=== PATIENT | female | born 1975 | race Caucasian/White ===

== ENCOUNTER 2017-09-07 12:43 | Emergency (ER) | payer MEDICARE, MEDICAID ==
[2017-09-07 14:47] LABS: ABS Basophils 0.2 10^3/ul (0-0.2); ABS Eosinophils 0.1 10^3/ul (0-0.6); ABS Lymphocytes 2.8 10^3/ul (1.0-4.8); ABS Monocytes 0.4 10^3/ul (0-0.8); ABS Neutrophils 3.9 10^3/ul (1.5-7.7); ABS Nucleated RBC 0 10^3/ul; Eosinophil % 1.1 % (0-6); Hematocrit 41 % (35-47); Lymphocyte % 37.9 % (25-47); Mean Corpuscular HGB Conc 34 g/dl (31-36); Mean Corpuscular Hemoglobin 30 pg (27-31); Mean Corpuscular Volume 87 fL (80-97); Mean Platelet Volume 7 um3 (7.4-10.4); Nucleated Red Blood Cells % 0.1; Platelet Count 250 10^3/ul (150-450); Red Blood Count 4.73 10^6/ul (4.0-5.4); Red Cell Distribution Width 14 % (10.5-15); White Blood Count 7.4 10^3/ul (3.5-10.8)
--- NOTE | 2017-09-07 15:01 | RAD ---
Indication: Chronic increasing abdominal pain. Comparison: April 13, 2005 Technique: Supine and upright views of the abdomen. Report: Obese body habitus limits image quality. No radiographic evidence for free air. Unremarkable bowel gas pattern. Small volume of stool in the colon without significant rectal distension. Negative for suspicious calcifications. Unremarkable soft tissue contours accounting for obese body habitus. IMPRESSION: No acute abdominal pelvic pathologic process evident.
[2017-09-07 15:02] LABS: EGFR Non-African American 115.8 (>60)
--- NOTE | 2017-09-28 19:21 | ED ---
Tracey Neves Edward, scribed for Julio Khan MD on 09/07/17 at 1326 . Abdominal Pain/Female - HPI Summary HPI Summary: 42 y/o female presents to the ED c/o severe ABD pain for weeks. The pain is described as a stabbing pain. The pain is located in the RLQ and radiates to the upper ABD. When the pt stands up the pain is aggravated. Associated sx: nausea, chills, numbness in her hands, bilateral pedal edema. Pt states the last time she passed gas was around 2 nights ago. Denies fever. PMHx bipolar disorder, PTSD. Sx 2 C-sections. Pt was seen at [facility] recently and had an ABD CT done. Pt states it showed kidney stones and multiple ABD hernias. - History of Current Complaint Chief Complaint: EDAbdPain Stated Complaint: ABD PAIN Hx Obtained From: Patient Timing: Constant Severity Currently: Severe Pain Intensity: 8 Pain Scale Used: 0-10 Numeric Location: Discrete At: RLQ Radiates: Yes Radiates to: Other - upper ABD Character: Other: - stabbing Aggravating Factor(s): Food, Movement - standing up Alleviating Factor(s): Nothing Associated Signs and Symptoms: Positive: Decreased Appetite, Nausea, Other: - numbness in hands, edema in feet Allergies/Adverse Reactions: Allergies Allergy/AdvReac Type Severity Reaction Status Date / Time No Known Allergies Allergy Verified 09/07/17 13:44 PMH/Surg Hx/FS Hx/Imm Hx Previously Healthy: No Neurological History: Denies: Hx Seizures Psychiatric History: Reports: Hx Post Traumatic Stress Disorder, Hx Bipolar Disorder - Immunization History Date of Tetanus Vaccine: UTD Date of Influenza Vaccine: 06/2017 Infectious Disease History: No Infectious Disease History: Denies: Traveled Outside the [place] in Last 30 Days - Family History Known Family History: Negative: Cardiac Disease, Hypertension, Diabetes - Social History Lives: With Family Alcohol Use: Occasionally Hx Substance Use: No Substance Use Type: Reports: None, Prescribed Hx Tobacco Use: No Smoking Status (MU): Never Smoked Tobacco Review of Systems Positive: Chills Eyes: Negative ENT: Negative Cardiovascular: Negative Respiratory: Negative Positive: Abdominal Pain, Nausea Genitourinary: Negative Positive: Edema - in feet Skin: Negative Positive: Numbness - in hands Psychological: Normal All Other Systems Reviewed And Are Negative: Yes Physical Exam - Summary Physical Exam Summary: Appearance: Well-appearing, Well-nourished Skin: Warm, Dry, No rash Eyes: Normal, PERRL, EOMI, sclera anicteric ENT: Normal Neck: Supple, nontender Respiratory: Clear to auscultation Cardiovascular: S1, S2, no murmur, no rub, no gallop Abdomen: Soft, nontender, no organomegaly Bowel sounds: Present Musculoskeletal: Normal, Strength/ROM Intact, no edema, pulses symmetrical Neurological: Normal, A&Ox3, cranial nerves II-XII WNL, follows commands, gait not tested, sensation intact to pin and light touch Psychiatric: affect normal, behavior appropriate, dressed appropriately, judgment intact Triage Information Reviewed: Yes Vital Signs On Initial Exam: Initial Vitals Temp Pulse Resp BP Pulse Ox 97.4 F 84 22 142/89 97 09/07/17 12:56 09/07/17 12:56 09/07/17 12:56 09/07/17 12:56 09/07/17 12:56 Vital Signs Reviewed: Yes - [place] Coma Scale Coma Scale Total: 15 Diagnostics - Vital Signs Vital Signs Temp Pulse Resp BP Pulse Ox 09/07/17 12:56 97.4 F 84 22 142/89 97 - Laboratory Result Diagrams: 09/07/17 14:28 09/07/17 14:28 Lab Statement: Any lab studies that have been ordered have been reviewed, and results considered in the medical decision making process. - Radiology ABD XR Xray Interpretation: No Acute Changes - No acute abdominal pelvic pathologic process evident. Radiology Interpretation Completed By: Radiologist - ED PHYSICIAN REVIEWS AND AGREES Abdominal Pain Fem Course/Dx - Course Course Of Treatment: ABD XR NEGATIVE. LABS WITHOUT SIGNIFICANT ABNORMALITIES. PT WILL BE D/C HOME. - Diagnoses Provider Diagnoses: Nonspecific abdominal pain Discharge - Discharge Plan Condition: Stable Disposition: HOME Patient Education Materials: Abdominal Pain (ED) Referrals: [facility] PHYSICIAN REFERRAL [Outside] The documentation as recorded by the Tracey olson Edward accurately reflects the service I personally performed and the decisions made by me, Julio Khan MD.
== END 2017-09-07 15:37 | disposition home or self-care (01) ==
LOC: ED 12:43
DX: R10.9 Unspecified abdominal pain (principal); R11.0 Nausea
CPT/HCPCS: 36415; 74020; 80053; 83690; 85025; 99282

== ENCOUNTER 2019-09-20 12:17 | Inpatient (IN) | payer MEDICARE, MEDICAID ==
[2019-09-20] MEDS ORDERED: Ondansetron INJ* 2 MG/ML VIAL IV PRN (14:22)
[2019-09-20] MEDS ORDERED: Morphine INJ* 2 MG/ML 1 ML SYRINGE (TWO MG - NEW SYRINGE VERSION) IV PRN (14:23)
[2019-09-20] MEDS: Acetaminophen TAB* 325 MG PO PRN (14:38)
[2019-09-20] MEDS: Enoxaparin(*) 40 MG/0.4 ML SYR SUBCUT SCH (14:38)
[2019-09-20] MEDS: NS 0.9% 1000 ML** 1,000 ML IV SCH ×2 (14:38→20:25)
[2019-09-20] MEDS: traMADol TAB* 50 MG PO PRN (14:53)
[2019-09-20] MEDS ORDERED: Vancomycin per Pharmacy* NOTE FOLLOW UP SCH (15:00)
[2019-09-20 15:02] LABS: ABS Eosinophils 0.1 10^3/ul (0-0.6); ABS Lymphocytes 0.5 10^3/ul (1.0-4.8); ABS Monocytes 0.2 10^3/ul (0-0.8); ABS Neutrophils 10.3 10^3/ul (1.5-7.7); Eosinophil % 0.8 %; Hematocrit 34 % (35-47); Hemoglobin 11.7 g/dL (12.0-16.0); Lymphocyte % 4.2 %; Mean Corpuscular HGB Conc 34 g/dL (31-36); Mean Corpuscular Hemoglobin 31 pg (27-31); Mean Corpuscular Volume 90 fL (80-97); Mean Platelet Volume 7.1 fL (7.4-10.4); Platelet Count 140 10^3/uL (150-450); Red Blood Count 3.81 10^6 /uL (3.70-4.87); Red Cell Distribution Width 14 % (10-15); White Blood Count 11.1 10^3/uL (3.5-10.8)
[2019-09-20 15:31] LABS: BUN/Creatinine Ratio 13.2 (8-20); Calcium 6.9 mg/dL (8.6-10.3); EGFR African American 113.2 (>60); EGFR Non-African American 93.6 (>60); Potassium 3.3 mmol/L (3.5-5.0)
[2019-09-20] MEDS ORDERED: Potassium Chlor TAB* 20 MEQ TAB.ER PO ONE (15:35)
[2019-09-20] MEDS ORDERED: Ibuprofen TAB* 600 MG PO ONE (16:29)
[2019-09-20] MEDS: Vancomycin(*) 1,250 MG in NS 0.9% 250 ML* 250 ML IVPB SCH (16:33)
[2019-09-20] MEDS: Pantoprazole TAB * 40 MG TAB PO SCH (17:30)
[2019-09-20] MEDS ORDERED: NS 0.9% 1000 ML** 1,000 ML IV ONE (17:54)
--- NOTE | 2019-09-20 19:19 | HP ---
HISTORY AND PHYSICAL: DATE OF ADMISSION: 09/20/19 PRIMARY CARE PROVIDER: None. REASON FOR THE ADMISSION: Cellulitis, sent from [facility]. HISTORY OF PRESENT ILLNESS: This is a 44-year-old female, who presented to the hospital from [facility] for the treatment of left leg cellulitis. About 4 days ago, the patient started to feel sick, which she describes as fever , malaise, and generalized fatigue. Shortly thereafter, she noted that she is having a left leg blistering, after which she noted severe erythema, swelling, and pain. This was also associated with subjective fevers at home. She went to the emergency room at [facility] and was found to have fever of 102.2, lactic acid of 4.1, WBC count of 11.82 and a lactic acid of 4.1. She was admitted with a diagnosis of left leg cellulitis and started on Zosyn. This morning, they noted that the infection had worsened and started her on vancomycin, and called the transfer center for transfer to [facility]. Currently, the patient is in our hospital, admitted, reports that her left leg is getting worse, associated with more pain and erythema, and more blisters. She is also feeling febrile with chills. PAST MEDICAL HISTORY: Includes PTSD, bipolar disorder, OCD, borderline personality disorder. PAST SURGICAL HISTORY: Includes ventral hernia surgery. ALLERGIES: MORPHINE. HOME MEDICATIONS: Include: 1. Clonazepam 2 mg at bedtime. 2. Escitalopram 10 mg at bedtime. 3. Oxcarbazepine 150 mg daily. 4. Trazodone 50 mg at bedtime. FAMILY HISTORY: Mother had cancer. SOCIAL HISTORY: She lives at home with her 2 kids. She does not smoke, no alcohol use. REVIEW OF SYSTEMS: She is having fever, chills, malaise. She does not have any sore throat. No changes in her vision or hearing. She does not have any chest pain. No palpitations. No paroxysmal nocturnal dyspnea. She does not have any shortness of breath. No cough. She does not have any abdominal pain. No nausea, no vomiting, no diarrhea. Extremities: See HPI. Skin: See HPI. She does not have any headaches, no changes in her mentation. She does have a history of PTSD, bipolar disorder with no acute changes. She does not have any thoughts of hurting herself or anyone else. PHYSICAL EXAMINATION GENERAL: This is an obese female, well developed, well nourished, lying in bed , in no acute distress. VITAL SIGNS: Blood pressure here is 132/88, heart rate of 118, temperature of 102.1, respiratory rate of 14, saturation of 91% on on room air. HEENT: Pupils are equal, round, and reactive. Atraumatic, normocephalic. There is no oropharyngeal erythema, no tonsillar exudate. NECK: There is no cervical lymphadenopathy. There is no thyromegaly. LUNGS: There is no lower extremity edema. Diminished breath sounds at the lung bases, with no wheezing, rales or rhonchi. HEART: There is no chest wall tenderness, regular tachycardia with no murmurs, rubs or gallops. ABDOMEN: Surgical scar at the vertical midline noted. There is normoactive bowel sounds. Abdomen is soft, nontender, nondistended. EXTREMITIES: There is no right lower extremity edema. Left lower extremity: There is a marker-line drawn, which contains erythema up to the knee area. There is marked erythema with mild swelling and tenderness present with few blisters present. There is also erythema at the left groin. NEUROLOGIC: She is awake, alert, oriented x3 with no focal deficit. DIAGNOSTIC STUDIES/LAB DATA: Labs: White blood cell count of 11.1, hemoglobin of 11.7, hematocrit of 34, platelets of 140. Absolute neutrophil count of 10.3, lactic acid of 1.6. Sodium of 132, potassium of 3.3, chloride of 101, bicarb of 22, BUN of 9, creatinine of 0.068. IMPRESSION AND PLAN: 1. Sepsis with left lower extremity cellulitis. At this point, I have started the patient on vancomycin, Zosyn. We will obtain blood cultures. Start the patient on IV fluids. I have ordered left lower extremity Doppler's to rule out DVT. Pain control has been ordered with acetaminophen as well as tramadol as needed. 2. Anemia. Hemoglobin of 11.7 with MCV of 90. This could be heme dilutional, repeat blood work will be ordered, I will also start the patient on pantoprazole for precautionary purposes. 3. Hypokalemia. Repletion has been ordered with 40 mEq of KCl. 4. Mild hyponatremia with sodium of 133. This is going to be replenished with normal saline. 5. History of borderline personality disorder, posttraumatic stress disorder, bipolar disorder, obsessive-compulsive disorder. Resume her home medication. 6. DVT prophylaxis with Lovenox 40 mg subcu. Additional management into the course as the hospital course progresses. [id number]/CPS #: [id number] MTDD
[2019-09-20] MEDS: Piperacillin/Tazobac ADVAN(*) 3.375 GM in NS 0.9% 100 ML* 100 ML IVPB SCH (20:26)
[2019-09-20] MEDS: clonazePAM TAB(*) 1 MG PO SCH (21:22)
[2019-09-20] MEDS: Calcium Carbonate TAB* 1250 MG (CALCIUM 500 MG) PO SCH (21:24)
[2019-09-20] MEDS: traZODone TAB* 50 MG TAB PO SCH (21:24)
[2019-09-20] MEDS: Escitalopram * 10 MG TAB PO SCH (21:25)
[2019-09-21] MEDS: traMADol TAB* 50 MG PO PRN (00:49)
[2019-09-21] MEDS: Acetaminophen TAB* 325 MG PO PRN ×3 (00:50→15:22)
[2019-09-21 01:47] LABS: Hematocrit 33 % (35-47); Hemoglobin 11.3 g/dL (12.0-16.0); Mean Corpuscular HGB Conc 34 g/dL (31-36); Mean Corpuscular Hemoglobin 31 pg (27-31); Mean Corpuscular Volume 90 fL (80-97); Mean Platelet Volume 7.1 fL (7.4-10.4); Platelet Count 127 10^3/uL (150-450); Red Blood Count 3.66 10^6 /uL (3.70-4.87); Red Cell Distribution Width 14 % (10-15); White Blood Count 9.3 10^3/uL (3.5-10.8)
[2019-09-21 02:04] LABS: Albumin/Globulin Ratio 1.1 (1-3); BUN/Creatinine Ratio 9.4 (8-20); Calcium 7.1 mg/dL (8.6-10.3); EGFR African American 121.4 (>60); EGFR Non-African American 100.3 (>60); Globulin 2.8 g/dL (2-4); Potassium 3.5 mmol/L (3.5-5.0); Total Bilirubin 0.5 mg/dL (0.2-1.0); Total Protein 5.8 g/dL (6.4-8.9)
[2019-09-21] MEDS: Vancomycin(*) 1,250 MG in NS 0.9% 250 ML* 250 ML IVPB SCH ×3 (02:07→17:04)
[2019-09-21] MEDS: Piperacillin/Tazobac ADVAN(*) 3.375 GM in NS 0.9% 100 ML* 100 ML IVPB SCH ×3 (04:02→20:02)
[2019-09-21 06:56] LABS: ABS Eosinophils 0.1 10^3/ul (0-0.6); ABS Lymphocytes 0.6 10^3/ul (1.0-4.8); ABS Monocytes 0.2 10^3/ul (0-0.8); ABS Neutrophils 8.2 10^3/ul (1.5-7.7); Eosinophil % 1.6 %; Hematocrit 33 % (35-47); Lymphocyte % 6.8 %; Mean Corpuscular HGB Conc 34 g/dL (31-36); Mean Corpuscular Hemoglobin 31 pg (27-31); Mean Corpuscular Volume 91 fL (80-97); Mean Platelet Volume 7.6 fL (7.4-10.4); Platelet Count 130 10^3/uL (150-450); Red Blood Count 3.58 10^6 /uL (3.70-4.87); Red Cell Distribution Width 14 % (10-15); White Blood Count 9.2 10^3/uL (3.5-10.8)
[2019-09-21 07:26] LABS: ALT 27 U/L (7-52); AST 34 U/L (13-39); Albumin/Globulin Ratio 1.1 (1-3); Alkaline Phosphatase 49 U/L (34-104); Anion Gap 8 mmol/L (2-11); BUN/Creatinine Ratio 8.1 (8-20); Blood Urea Nitrogen 5 mg/dL (6-24); C Reactive Protein 402.18 mg/L (<8.01); CO2 Carbon Dioxide 21 mmol/L (22-32); Calcium 7.2 mg/dL (8.6-10.3); Chloride 104 mmol/L (101-111); EGFR Non-African American 104.1 (>60); Globulin 2.8 g/dL (2-4); Glucose 130 mg/dL (70-100); Potassium 3.3 mmol/L (3.5-5.0); Sodium 133 mmol/L (135-145); Total Protein 5.8 g/dL (6.4-8.9)
[2019-09-21 07:31] LABS: Total Iron Binding Capacity 256 mcg/dL (250-450); Transferrin 183 mg/dL (203-362)
[2019-09-21 07:41] LABS: % Iron Saturation 8 % (15-55); Iron < 20 ug/dL (50-212)
[2019-09-21 07:53] LABS: Ferritin 476.3 ng/mL (11-307)
[2019-09-21 07:57] LABS: Folate > 20.00 ng/mL (>3.99)
[2019-09-21] MEDS: OXcarbazepine TAB(*) 300 MG PO SCH (08:05)
[2019-09-21] MEDS: Pantoprazole TAB * 40 MG TAB PO SCH (08:05)
[2019-09-21] MEDS: Calcium Carbonate TAB* 1250 MG (CALCIUM 500 MG) PO SCH (08:05)
[2019-09-21] MEDS ORDERED: Potassium Chlor TAB* 20 MEQ TAB.ER PO ONE (08:36)
[2019-09-21] MEDS ORDERED: Bumetanide IV* 0.25 MG/ML 4 ML VIAL SLOW PUSH ONE (08:42)
--- NOTE | 2019-09-21 10:39 | PN ---
Subjective Date of Service: 09/21/19 Interval History: Nurse reports that she is having difficulty feeling the Left Dorsalis pedis pulse, but she was able to hear it with the dopplers. Patient reports the erythema is imprving at the groin and inner thigh region, but the blisters are bigger at the lower leg and there is more swelling. She reports bilateral feet numbness Family History: Unchanged from Admission Social History: Unchanged from Admission Past Medical History: Unchanged from Admission Objective Active Medications: Acetaminophen (Tylenol Tab*) 650 mg PO Q6H PRN PRN Reason: PAIN - MODERATE Last Admin: 09/21/19 08:04 Dose: 650 mg Clonazepam (Klonopin Tab(*)) 2 mg PO BEDTIME [facility] Last Admin: 09/20/19 21:22 Dose: 2 mg Enoxaparin Sodium (Lovenox(*)) 40 mg SUBCUT Q24H [facility] Last Admin: 09/20/19 14:38 Dose: 40 mg Escitalopram Oxalate (Lexapro *) 10 mg PO BEDTIME [facility] Last Admin: 09/20/19 21:25 Dose: 10 mg Piperacillin Sod/Tazobactam (Sod 3.375 gm/ Sodium Chloride) 100 mls @ 25 mls/ hr IVPB Q8H [facility] Last Admin: 09/21/19 04:02 Dose: 25 mls/hr Vancomycin HCl 1,250 mg/ (Sodium Chloride) 250 mls @ 166.667 mls/hr IVPB Q8H [facility] Last Admin: 09/21/19 08:04 Dose: 166.667 mls/hr Ondansetron HCl (Zofran Inj*) 4 mg IV Q6H PRN PRN Reason: NAUSEA Last Admin: 09/20/19 15:47 Dose: 4 mg Oxcarbazepine (Trileptal Tab(*)) 150 mg PO DAILY [facility] Last Admin: 09/21/19 08:05 Dose: 150 mg Pantoprazole Sodium (Protonix Tab*) 40 mg PO DAILY [facility] Last Admin: 09/21/19 08:05 Dose: 40 mg Pharmacy Consult (Vancomycin Per Pharmacy*) 1 note FOLLOW UP .VANC PER PHARMACY [facility]; Protocol Pharmacy Profile Note (Vancomycin Trough Check) 1 note FOLLOW UP ONCE ONE Stop: 09/21/19 15:31 Tramadol HCl (Ultram*) 50 mg PO Q8H PRN PRN Reason: PAIN - SEVERE Last Admin: 09/21/19 00:49 Dose: 50 mg Trazodone HCl (Desyrel Tab*) 50 mg PO BEDTIME [facility] Last Admin: 09/20/19 21:24 Dose: 50 mg Vital Signs - 8 hr 09/21/19 09/21/19 09/21/19 02:45 03:08 03:31 Temperature 99 F Pulse Rate 98 Respiratory 20 20 20 Rate Blood Pressure 131/71 (mmHg) O2 Sat by Pulse 99 Oximetry 09/21/19 09/21/19 06:00 08:00 Temperature 98.9 F 100.5 F Pulse Rate 102 110 Respiratory 18 24 Rate Blood Pressure 124/60 120/71 (mmHg) O2 Sat by Pulse 95 94 Oximetry Oxygen Devices in Use Now: None Appearance: Obese female lying in bed, ill appearing but not in distress Eyes: PERRLA Respiratory: - - diminshed breath sounds with mild crackles. Cardiovascular: - - regular tachycardia, no murmurs. Abdominal: NL Sounds; No Tenderness; No Distention, No Hepatosplenomegaly Skin: - - 1+ edema bilateral lower extremities. Left inner thigh and groin with mild erythema, and the lower left leg there is severe erythmea with tenderness and bilsters present. DP diminshed at the Left leg. sensation to touch at bilateral feet is diminshed, but feet are warm with able to move the feet and wiggle toes. Neurological: Alert and Oriented x 3 Result Diagrams: 09/21/19 06:44 09/21/19 06:44 Assess/Plan/Problems-Billing Assessment: - Patient Problems (1) Sepsis due to cellulitis Current Visit: Yes Status: Acute Code(s): L03.90 - CELLULITIS, UNSPECIFIED; A41.9 - SEPSIS, UNSPECIFIED ORGANISM SNOMED Code(s): 23038990 Comment: Left leg cellulitis Blood cultures were done at [facility]- called them today and they reported the cultures are negative thus far continue IV vancomycin and zosyn blood cultures were drawn here as well. DVT was ruled out. received IV fluids, now having crackles at the lungs and worsening lower extremity swelling- stop the IV fluids, one dose of bumex (2) Anemia, iron deficiency Current Visit: Yes Status: Acute Code(s): D50.9 - IRON DEFICIENCY ANEMIA, UNSPECIFIED SNOMED Code(s): 16165826 Comment: Low hemoglobin. folate and B12 are WNL iron studies suggestive of iron deficiency IV iron while inpatient, and then will discharge with oral iron at this point no acute bleeding reports brown colored stool, will get stool for occult blood. (3) Hyponatremia Current Visit: Yes Status: Acute Code(s): E87.1 - HYPO-OSMOLALITY AND HYPONATREMIA SNOMED Code(s): 46964947 Comment: mild hyponatremia will monitor received IV fluids, now findings suggestive of fluid overload, IV fluids stopped and giving 1mg IV of bumex (4) Hypokalemia Current Visit: Yes Status: Acute Code(s): E87.6 - HYPOKALEMIA SNOMED Code( s): 70027500 Comment: repleted (5) Obesity Current Visit: Yes Status: Acute Code(s): E66.9 - OBESITY, UNSPECIFIED SNOMED Code(s): 487401335 Comment: BMI of 49 will check A1c
[2019-09-21] MEDS: Iron Sucrose* 200 MG in NS 0.9% 100 ML* 100 ML IVPB SCH (12:21)
[2019-09-21] MEDS: Enoxaparin(*) 40 MG/0.4 ML SYR SUBCUT SCH (15:22)
[2019-09-21] MEDS ORDERED: Vancomycin Trough Check NOTE FOLLOW UP ONE (15:30)
[2019-09-21] MEDS: Ibuprofen TAB* 400 MG PO PRN (17:15)
[2019-09-21] MEDS: clonazePAM TAB(*) 1 MG PO SCH (20:02)
[2019-09-21] MEDS: Escitalopram * 10 MG TAB PO SCH (20:03)
[2019-09-21] MEDS: traZODone TAB* 50 MG TAB PO SCH (20:03)
[2019-09-21] MEDS: Vancomycin(*) 1,000 MG in NS 0.9% 250 ML* 250 ML IV SCH (23:42)
[2019-09-22] MEDS: Piperacillin/Tazobac ADVAN(*) 3.375 GM in NS 0.9% 100 ML* 100 ML IVPB SCH ×3 (04:53→20:38)
[2019-09-22] MEDS: Vancomycin(*) 1,000 MG in NS 0.9% 250 ML* 250 ML IV SCH ×4 (04:54→23:06)
[2019-09-22 06:21] LABS: Hematocrit 27 % (35-47); Hemoglobin 9.3 g/dL (12.0-16.0); Mean Corpuscular HGB Conc 34 g/dL (31-36); Mean Corpuscular Hemoglobin 31 pg (27-31); Mean Corpuscular Volume 91 fL (80-97); Mean Platelet Volume 8.3 fL (7.4-10.4); Platelet Count 140 10^3/uL (150-450); Red Blood Count 3.02 10^6 /uL (3.70-4.87); Red Cell Distribution Width 14 % (10-15)
[2019-09-22 06:41] LABS: BUN/Creatinine Ratio 10.6 (8-20); Calcium 6.8 mg/dL (8.6-10.3); EGFR African American 173.4 (>60); EGFR Non-African American 143.3 (>60); Potassium 2.9 mmol/L (3.5-5.0)
[2019-09-22] MEDS ORDERED: Potassium Chlor TAB* 20 MEQ TAB.ER PO ONE ×2 (07:27→13:00)
[2019-09-22] MEDS: Acetaminophen TAB* 325 MG PO PRN (08:14)
[2019-09-22] MEDS: Iron Sucrose* 200 MG in NS 0.9% 100 ML* 100 ML IVPB SCH (08:14)
[2019-09-22] MEDS: Pantoprazole TAB * 40 MG TAB PO SCH (08:15)
[2019-09-22] MEDS: OXcarbazepine TAB(*) 300 MG PO SCH (08:15)
--- NOTE | 2019-09-22 11:31 | PN ---
Subjective Date of Service: 09/22/19 Interval History: No acute issues overnight Had fever yesterday. This morning seen and evaluated- reported no new issues having occasional shortness of breath, does have pain at the left leg. Family History: Unchanged from Admission Social History: Unchanged from Admission Past Medical History: Unchanged from Admission Objective Active Medications: Acetaminophen (Tylenol Tab*) 650 mg PO Q6H PRN PRN Reason: PAIN - MODERATE Last Admin: 09/22/19 08:14 Dose: 650 mg Clonazepam (Klonopin Tab(*)) 2 mg PO BEDTIME [facility] Last Admin: 09/21/19 20:02 Dose: 2 mg Enoxaparin Sodium (Lovenox(*)) 40 mg SUBCUT Q24H [facility] Last Admin: 09/21/19 15:22 Dose: 40 mg Escitalopram Oxalate (Lexapro *) 10 mg PO BEDTIME [facility] Last Admin: 09/21/19 20:03 Dose: 10 mg Piperacillin Sod/Tazobactam (Sod 3.375 gm/ Sodium Chloride) 100 mls @ 25 mls/ hr IVPB Q8H [facility] Last Admin: 09/22/19 04:53 Dose: 25 mls/hr Iron Sucrose 200 mg/ Sodium (Chloride) 110 mls @ 110 mls/hr IVPB DAILY [facility] Stop: 09/25/19 09:59 Last Admin: 09/22/19 08:14 Dose: 110 mls/hr Vancomycin HCl 1,000 mg/ (Sodium Chloride) 250 mls @ 166.667 mls/hr IV Q6H [facility] Last Admin: 09/22/19 10:58 Dose: 166.667 mls/hr Ibuprofen (Motrin Tab*) 400 mg PO Q6H PRN PRN Reason: MILD PAIN or TEMP > 100.4 Last Admin: 09/21/19 17:15 Dose: 400 mg Ondansetron HCl (Zofran Inj*) 4 mg IV Q6H PRN PRN Reason: NAUSEA Last Admin: 09/20/19 15:47 Dose: 4 mg Oxcarbazepine (Trileptal Tab(*)) 150 mg PO DAILY [facility] Last Admin: 09/22/19 08:15 Dose: 150 mg Pantoprazole Sodium (Protonix Tab*) 40 mg PO DAILY [facility] Last Admin: 09/22/19 08:15 Dose: 40 mg Pharmacy Consult (Vancomycin Per Pharmacy*) 1 note FOLLOW UP .VANC PER PHARMACY [facility]; Protocol Pharmacy Consult (Vancomycin Random Level*) 1 note FOLLOW UP ONCE ONE Stop: 09/23/19 05:01 Potassium Chloride (Klor Con Er Tab*) 40 meq PO UC ONCE ONE Stop: 09/22/19 13:01 Tramadol HCl (Ultram*) 50 mg PO Q8H PRN PRN Reason: PAIN - SEVERE Last Admin: 09/21/19 00:49 Dose: 50 mg Trazodone HCl (Desyrel Tab*) 50 mg PO BEDTIME [facility] Last Admin: 09/21/19 20:03 Dose: 50 mg Vital Signs - 8 hr 09/22/19 09/22/19 09/22/19 07:00 08:00 11:00 Temperature 98.7 F 98.5 F Pulse Rate 103 95 Respiratory 18 18 20 Rate Blood Pressure 127/77 126/86 (mmHg) O2 Sat by Pulse 94 95 Oximetry Oxygen Devices in Use Now: None Appearance: Obese female lying in bed, not in distress. Ears/Nose/Mouth/Throat: Mucous Membranes Moist Respiratory: Symmetrical Chest Expansion and Respiratory Effort, - - mild bibasilar wheezing. Cardiovascular: NL Sounds; No Murmurs; No JVD, RRR Extremities: - - 1+ edema bilateral lower extremities. Skin: - - Left groin with mild erythema, moderate erythema and Left lower leg with blisters, swelling and tenderness. Dorsalis pedis 2+ Neurological: Alert and Oriented x 3, NL Muscle Strength and Tone Result Diagrams: 09/22/19 05:49 09/22/19 05:48 Microbiology and Other Data: Microbiology 09/21/19 06:44 Aerobic Blood Culture - Preliminary Blood Venous No Growth Day 1 Anaerobic Blood Culture - Preliminary No Growth Day 1 09/21/19 20:25 Stool Occult Blood ([facility]ON) - Final Stool Assess/Plan/Problems-Billing Assessment: - Patient Problems (1) Sepsis due to cellulitis Current Visit: Yes Status: Acute Code(s): L03.90 - CELLULITIS, UNSPECIFIED; A41.9 - SEPSIS, UNSPECIFIED ORGANISM SNOMED Code(s): 60341243 Comment: Left leg cellulitis Blood cultures were done at [facility]- called them today and they reported the cultures are negative thus far continue IV vancomycin and zosyn blood cultures were drawn here as well. DVT was ruled out. (2) Anemia, iron deficiency Current Visit: Yes Status: Acute Code(s): D50.9 - IRON DEFICIENCY ANEMIA, UNSPECIFIED SNOMED Code(s): 45161481 Comment: Low hemoglobin. folate and B12 are WNL iron studies suggestive of iron deficiency IV iron while inpatient, and then will discharge with oral iron at this point no acute bleeding reports brown colored stool, stool occult is negative. (3) Hyponatremia Current Visit: Yes Status: Acute Code(s): E87.1 - HYPO-OSMOLALITY AND HYPONATREMIA SNOMED Code(s): 51874861 Comment: mild hyponatremia will monitor received IV fluids, now findings suggestive of fluid overload, IV fluids stopped and giving 1mg IV of bumex (4) Hypokalemia Current Visit: Yes Status: Acute Code(s): E87.6 - HYPOKALEMIA SNOMED Code( s): 13934928 Comment: repleted 09/21, 09/22 (5) Obesity Current Visit: Yes Status: Acute Code(s): E66.9 - OBESITY, UNSPECIFIED SNOMED Code(s): 285906805 Comment: BMI of 49 A1c is WNL. (6) Leg swelling Current Visit: Yes Status: Acute Code(s): M79.89 - OTHER SPECIFIED SOFT TISSUE DISORDERS SNOMED Code(s): 285433612 Comment: Leg swelling and trouble brething after IV fluids- yesterday received one dose bumex wtih improvement. Will check ECHO (7) Sleep apnea Current Visit: Yes Status: Acute Code(s): G47.30 - SLEEP APNEA, UNSPECIFIED SNOMED Code(s): 77677935 Comment: on Night CPAP
[2019-09-22] MEDS: Enoxaparin(*) 40 MG/0.4 ML SYR SUBCUT SCH (16:20)
[2019-09-22] MEDS: Ibuprofen TAB* 400 MG PO PRN (16:33)
[2019-09-22] MEDS: Escitalopram * 10 MG TAB PO SCH (20:38)
[2019-09-22] MEDS: clonazePAM TAB(*) 1 MG PO SCH (20:38)
[2019-09-22] MEDS: traZODone TAB* 50 MG TAB PO SCH (20:38)
[2019-09-22] MEDS: Lactobacillus Acidophilus* 1 TAB PO SCH (20:38)
[2019-09-23] MEDS: Piperacillin/Tazobac ADVAN(*) 3.375 GM in NS 0.9% 100 ML* 100 ML IVPB SCH ×2 (04:03→12:22)
[2019-09-23] MEDS ORDERED: Vancomycin Random Level* NOTE FOLLOW UP ONE (05:00)
[2019-09-23] MEDS: traMADol TAB* 50 MG PO PRN ×2 (05:59→16:36)
[2019-09-23] MEDS: Vancomycin(*) 1,000 MG in NS 0.9% 250 ML* 250 ML IV SCH ×3 (06:10→12:43)
[2019-09-23] MEDS: Ibuprofen TAB* 400 MG PO PRN (08:06)
[2019-09-23] MEDS: OXcarbazepine TAB(*) 300 MG PO SCH (08:09)
[2019-09-23] MEDS: Pantoprazole TAB * 40 MG TAB PO SCH (08:10)
[2019-09-23] MEDS: Lactobacillus Acidophilus* 1 TAB PO SCH ×2 (08:10→20:16)
--- NOTE | 2019-09-23 10:27 | PN ---
Subjective Date of Service: 09/23/19 Interval History: No acute issues overnight Did have fever yesterday She has no chest pain this morning, no shortness of breath, no palpitations. Family History: Unchanged from Admission Social History: Unchanged from Admission Past Medical History: Unchanged from Admission Objective Active Medications: Acetaminophen (Tylenol Tab*) 650 mg PO Q6H PRN PRN Reason: PAIN - MODERATE Last Admin: 09/22/19 08:14 Dose: 650 mg Clonazepam (Klonopin Tab(*)) 2 mg PO BEDTIME [facility] Last Admin: 09/22/19 20:38 Dose: 2 mg Escitalopram Oxalate (Lexapro *) 10 mg PO BEDTIME [facility] Last Admin: 09/22/19 20:38 Dose: 10 mg Piperacillin Sod/Tazobactam (Sod 3.375 gm/ Sodium Chloride) 100 mls @ 25 mls/ hr IVPB Q8H [facility] Last Admin: 09/23/19 04:03 Dose: 25 mls/hr Iron Sucrose 200 mg/ Sodium (Chloride) 110 mls @ 110 mls/hr IVPB DAILY [facility] Stop: 09/25/19 09:59 Last Admin: 09/22/19 08:14 Dose: 110 mls/hr Vancomycin HCl 1,000 mg/ (Sodium Chloride) 250 mls @ 166.667 mls/hr IV Q6H [facility] Last Admin: 09/23/19 08:09 Dose: 166.667 mls/hr Ibuprofen (Motrin Tab*) 400 mg PO Q6H PRN PRN Reason: MILD PAIN or TEMP > 100.4 Last Admin: 09/23/19 08:06 Dose: 400 mg Lactobacillus Rhamnosus (Lactobacillus Acidophilus*) 1 tab PO BID [facility] Last Admin: 09/23/19 08:10 Dose: 1 tab Ondansetron HCl (Zofran Inj*) 4 mg IV Q6H PRN PRN Reason: NAUSEA Last Admin: 09/20/19 15:47 Dose: 4 mg Oxcarbazepine (Trileptal Tab(*)) 150 mg PO DAILY [facility] Last Admin: 09/23/19 08:09 Dose: 150 mg Pantoprazole Sodium (Protonix Tab*) 40 mg PO DAILY [facility] Last Admin: 09/23/19 08:10 Dose: 40 mg Pharmacy Consult (Vancomycin Per Pharmacy*) 1 note FOLLOW UP .VANC PER PHARMACY [facility]; Protocol Tramadol HCl (Ultram*) 50 mg PO Q8H PRN PRN Reason: PAIN - SEVERE Last Admin: 09/23/19 05:59 Dose: 50 mg Trazodone HCl (Desyrel Tab*) 50 mg PO BEDTIME [facility] Last Admin: 09/22/19 20:38 Dose: 50 mg Vital Signs - 8 hr 09/23/19 09/23/19 09/23/19 03:16 05:59 08:00 Temperature 99.2 F 101.4 F Pulse Rate 95 98 Respiratory 20 20 16 Rate Blood Pressure 113/78 134/92 (mmHg) O2 Sat by Pulse 94 96 Oximetry Oxygen Devices in Use Now: None Appearance: Obese female lying in bed, not in distress Eyes: PERRLA Ears/Nose/Mouth/Throat: Mucous Membranes Moist Respiratory: Symmetrical Chest Expansion and Respiratory Effort, Clear to Auscultation Cardiovascular: NL Sounds; No Murmurs; No JVD, RRR Abdominal: NL Sounds; No Tenderness; No Distention, No Hepatosplenomegaly Skin: - - Left lower leg with moderate erythema and mild tenderness with swelling. Left groin mild erythema present. THere are blisters at the left lower leg. Left heel an area of opening with dark discoloaration- small ulcer lesion with no drainage or tenderness Neurological: Alert and Oriented x 3 Result Diagrams: 09/22/19 05:49 09/22/19 05:48 Microbiology and Other Data: Microbiology 09/21/19 06:44 Aerobic Blood Culture - Preliminary Blood Venous No Growth Day 1 Anaerobic Blood Culture - Preliminary No Growth Day 1 09/21/19 20:25 Stool Occult Blood ([facility]) - Final Stool Assess/Plan/Problems-Billing Assessment: - Patient Problems (1) Sepsis due to cellulitis Current Visit: Yes Status: Acute Code(s): L03.90 - CELLULITIS, UNSPECIFIED; A41.9 - SEPSIS, UNSPECIFIED ORGANISM SNOMED Code(s): 88028722 Comment: Left leg cellulitis Blood cultures were done at [facility]- called them today and they reported the cultures are negative thus far continue IV vancomycin and zosyn blood cultures here are thus far negative. DVT was ruled out. (2) Anemia, iron deficiency Current Visit: Yes Status: Acute Code(s): D50.9 - IRON DEFICIENCY ANEMIA, UNSPECIFIED SNOMED Code(s): 21598480 Comment: Low hemoglobin. folate and B12 are WNL iron studies suggestive of iron deficiency IV iron while inpatient, and then will discharge with oral iron at this point no acute bleeding reports brown colored stool, stool occult is negative. drop in hb this admission- could be dilutional- will monitor. (3) Hyponatremia Current Visit: Yes Status: Acute Code(s): E87.1 - HYPO-OSMOLALITY AND HYPONATREMIA SNOMED Code(s): 59628233 Comment: mild hyponatremia will monitor received IV fluids, now findings suggestive of fluid overload, IV fluids stopped and status post 1mg IV of bumex 09/21 (4) Hypokalemia Current Visit: Yes Status: Acute Code(s): E87.6 - HYPOKALEMIA SNOMED Code( s): 94594886 Comment: repleted 09/21, 09/22 (5) Obesity Current Visit: Yes Status: Acute Code(s): E66.9 - OBESITY, UNSPECIFIED SNOMED Code(s): 475700428 Comment: BMI of 49 A1c is WNL. (6) Leg swelling Current Visit: Yes Status: Acute Code(s): M79.89 - OTHER SPECIFIED SOFT TISSUE DISORDERS SNOMED Code(s): 748226480 Comment: Leg swelling and trouble brething after IV fluids- yesterday received one dose bumex wtih improvement. Will check ECHO (7) Sleep apnea Current Visit: Yes Status: Acute Code(s): G47.30 - SLEEP APNEA, UNSPECIFIED SNOMED Code(s): 50377544 Comment: on Night CPAP
[2019-09-23] MEDS: Iron Sucrose* 200 MG in NS 0.9% 100 ML* 100 ML IVPB SCH (12:22)
--- NOTE | 2019-09-23 12:44 | CONSULT ---
Subjective Date of Service: 09/23/19 Interval History: Ms. Woods is a 44-year-old female with past medical history significant for peripheral neuropathy, PTSD, bipolar disorder, OCD, and borderline personality disorder, who presented to [facility] Emergency Room for complaints of redness to her left leg. Due to worsening of the redness in her leg, she was transferred to [facility] for continued care. She presented to the hospital with bullae and rash to her left leg and an ulcer to the left plantar heel. This has been present for at least 3 weeks, a friend at the [facility] had instructed her to treat the wound with iodosorb. Patient seen and examined at bedside. Verbal consent obtained for a wound evaluation and photograph. Family History: Unchanged from Admission Social History: Unchanged from Admission Past Medical History: Unchanged from Admission Review of Systems - Measurements Intake and Output: Intake and Output Last 24 Hours 09/21/19 09/22/19 09/23/19 09/24/19 06:59 06:59 06:59 06:59 Intake Total 1815 6897 2827 480 Output Total 1300 7600 2900 300 Balance 515 -703 -73 180 Weight 287 lb Intake: IV Fluids 515 2197 300 ABX - VANCOMYCIN 280 NS (0.9%) 235 2197 300 IVPB 1150 1127 ABX - VANCOMYCIN 782 806 Iron 115 115 Zosyn 253 206 Oral 1300 3550 1400 480 Output: Urine 1300 7600 2900 300 Other: Estimated Void Medium # Bowel Movements 1 Estimated Stool Amount Large - Review of Systems Constitutional Symptoms: Positive: Fever, Other - Chills Dermatology: Positive: Rash, Other - blisters to left leg, wound to the left heel Objective Active Medications: Acetaminophen (Tylenol Tab*) 650 mg PO Q6H PRN Reason: PAIN - MODERATE Clonazepam (Klonopin Tab(*)) 2 mg PO BEDTIME [facility] Escitalopram Oxalate (Lexapro *) 10 mg PO BEDTIME [facility] Piperacillin Sod/Tazobactam (Sod 3.375 gm/ Sodium Chloride) 100 mls @ 25 mls/ hr IVPB Q8H [facility] Iron Sucrose 200 mg/ Sodium (Chloride) 110 mls @ 110 mls/hr IVPB DAILY [facility] Stop: 09/25/19 09:59 Vancomycin HCl 1,000 mg/ (Sodium Chloride) 250 mls @ 166.667 mls/hr IV Q6H [facility] Ibuprofen (Motrin Tab*) 400 mg PO Q6H PRN Reason: MILD PAIN or TEMP > 100.4 Lactobacillus Rhamnosus (Lactobacillus Acidophilus*) 1 tab PO BID [facility] Ondansetron HCl (Zofran Inj*) 4 mg IV Q6H PRN Reason: NAUSEA Oxcarbazepine (Trileptal Tab(*)) 150 mg PO DAILY [facility] Pantoprazole Sodium (Protonix Tab*) 40 mg PO DAILY [facility] Pharmacy Consult (Vancomycin Per Pharmacy*) 1 note FOLLOW UP .VANC PER PHARMACY [facility]; Protocol Tramadol HCl (Ultram*) 50 mg PO Q8H PRN Reason: PAIN - SEVERE Trazodone HCl (Desyrel Tab*) 50 mg PO BEDTIME [facility] Vital Signs 09/23/19 09/23/19 09/23/19 05:59 08:00 11:13 Temperature 101.4 F 98.4 F Pulse Rate 98 81 Respiratory 20 16 16 Rate Blood Pressure 134/92 101/58 (mmHg) O2 Sat by Pulse 96 95 Oximetry Oxygen Devices in Use Now: None Appearance: NAD, sitting up in bed Ears/Nose/Mouth/Throat: Mucous Membranes Moist Respiratory: Symmetrical Chest Expansion and Respiratory Effort Extremities: - - 1-2+ bilateral LE edema L>R, 1+ bilateral DP pulse Skin: - - See skin note below. There is slight erythema to the left medial thigh. Neurological: Alert and Oriented x 3 Nutrition: Taking PO's Result Diagrams: 09/24/19 05:59 09/25/19 07:48 Additional Lab and Data: Above labs were pulled into the note, when the note was edited prior to signing. Please see below for labs from day of consultation. Laboratory Tests 09/21/19 09/22/19 09/22/19 06:44 05:48 05:48 WBC Hgb Hct Plt Count Sodium 140 Potassium 2.9 L Chloride 111 Carbon Dioxide 22 BUN 5 L Creatinine 0.47 L Glucose 115 H Hemoglobin A1c 5.9 H C-Reactive Protein 402.18 H Total Protein 5.8 L Albumin 3.0 L 09/22/19 05:49 WBC 8.0 Hgb 9.3 L Hct 27 L Plt Count 140 L Sodium Potassium Chloride Carbon Dioxide BUN Creatinine Glucose Hemoglobin A1c C-Reactive Protein Total Protein Albumin Diagnostic Imaging: Exam Date: 09/20/19 1419 - VL LOWER EXT VEINS LEFT IMPRESSION: NO EVIDENCE OF DEEP VENOUS THROMBOSIS IS IDENTIFIED. LIMITED EVALUATION OF THE DISTAL FEMORAL VEIN, POSTERIOR TIBIAL VEINS AND PERONEAL VEINS. Skin Deviation Note - Skin Deviation Findings Left heel, plantar aspect - There is an area of dry necrotic tissue, measures 0.3 cm x 0.7 cm x 0.2 cm. The surrounding skin is intact, but feels calloused. There is no erythema or drainage. Left lower leg - There is weeping edema with multiple large bullae. There are 3 superficial open areas. There is an area to the medial aspect of the leg (not visualized in the picture), measures 1 cm x 3 cm x 0.1 cm. The wound base is red epithelial tissue. The surrounding skin is erythematous. There is serous drainage. The proximal open area, measures 2 cm x 1.5 cm x 0.2 cm. The wound base is red epithelial tissue. The surrounding skin is erythematous. There is a large amount of serous drainage. The distal open area, measures 1.5 cm x 2 cm x 0.1 cm. The wound base is red epithelial tissue. The surrounding skin is erythematous. There is a moderate amount of serous drainage. Wound Problem/Plan Assessment: Ms. Woods is a 44-year-old female with past medical history significant for peripheral neuropathy, PTSD, bipolar disorder, OCD, and borderline personality disorder, who presented to [facility] Emergency Room for complaints of redness to her left leg. Due to worsening of the redness in her leg, she was transferred to [facility] for continued care. She presented to the hospital with bullae and rash to her left leg and an ulcer to the left plantar heel. 1. Ulcer to the plantar aspect of the left heel. Suspect this is a neuropathic ulcer vs trauma. Pt noticed bleeding from the area about 3 weeks ago, but denies known trauma. Recommend keeping the area clean, no dressing needed at this time. She should follow with Podiatry and/or the wound clinic at discharge as she may benefit from debridement of the wound. Should have ABIs once there is improvement in the cellulitis of the left LE, she would not tolerate ABIs at this time due to pain in the left leg. If this wound becomes a chronic wound, should also consider obtaining an MRI to evaluate for osteomyelitis. 2. Left LE cellulitis with bullae. Currently on IV ABX per ID. There is weeping of serous drainage. Recommend washing the leg gently with soap and water. Keep open to air. Keep leg elevated as able to help with edema. 3. Peripheral neuropathy. Unclear cause, she is not a diabetic. 4. Diet. Regular diet. 5. Code Status. Full Code Status. 6. Disposition. Inpatient, disposition per primary medicine team. TIME SPENT: Time for this wound consultation was 20 minutes and 10 minutes was spent with the patient discussing past medical history; assessing, measuring, and photographing the wound; and discussing wound care recommendations with the patient. Is Patient a Wound Clinic Patient: No Attending: Lydia Bowser
[2019-09-23] MEDS ORDERED: Perflutren Lipid Microsphere* 3 ML VIAL ONE (13:19)
[2019-09-23] MEDS ORDERED: Vancomycin(*) 1,000 MG in NS 0.9% 250 ML* 250 ML IV SCH (14:00)
--- NOTE | 2019-09-23 14:56 | CONS ---
CONSULTATION REPORT: DATE OF CONSULT: 09/23/19 PRIMARY CARE PROVID[facility] [place] PROVIDER REQUESTING CONSULTATION: Dr. Oneyda Barton. CONSULTING SERVICE: Infectious Disease. PROVIDER: Melani Vera NP. ATTENDING PROVIDER: Dr. Chip Crowley* (dictated by Melani Vera NP). REASON FOR CONSULT: Left lower extremity cellulitis. IMPRESSION: 1. Left lower extremity cellulitis. The patient reports that she is having some improvement in the erythema and swelling of the left leg overall. She has weeping with multiple large bullae present. She was also noted to have an area of erythema and induration to the left thigh. Her initial leukocytosis has resolved, but she continues to have intermittent fevers with the last fever this morning of 101.4. Temperature max during her hospitalization here has been 102.9 and she has been on vancomycin and Zosyn. Blood cultures with no growth to date. She did have a venous Doppler done on admission showing no deep venous thrombosis. Suspect this likely represents a Group A Step cellulitis. 2. Sepsis. Secondary to item #1. This was present on admission, now resolved. 3. Peripheral neuropathy with neuropathic ulcer vs traumatic wound to the plantar aspect of the left heel. No signs of infection at this time. PLAN: Recommend discontinuing Vancomycin and Zosyn. Start Ceftriaxone 2gm IV daily. She should continue to stay in the hospital receiving IV antibiotics until she has marked improvement in the leg. We will continue to follow along, further recommendations will be made based on the clinic course. HISTORY OF PRESENT ILLNESS: Ms. Woods is a 44-year-old female with past medical history significant for PTSD, bipolar disorder, OCD, and borderline personality disorder, who presented to [facility] Emergency Room for complaints of redness to her left leg. Ms. Woods states that she had been in her usual state of health when on , 09/19/19, she had noticed some erythema on the inner aspect of her left ankle. She also noticed that she had a fever of 105. Due to this, she had discussed with a friend who had been attending to a wound on her left heel, who recommended that she go to the emergency room. Prior to that, for about 4 days, she had felt unwell with malaise and general fatigue. She presented to the [facility] Emergency Room where she was found to have a fever of 102.2, a lactic acid of 4.1, white blood cell count of 11.82, and she was admitted there for a left lower extremity cellulitis and started on Zosyn. Based on pictures the patient has from her hospitalization, at around 9 a.m. on 09/19/19, she had some slight erythema to the ankle. By 3 p.m., this had spread up the leg and was a dark erythema. The patient was noted to have worsening of her infection. She was changed to vancomycin and was transferred to [facility] for further treatment. It is to note that the patient states that approximately 3 weeks ago she had noticed blood on her floor and had noticed that she had a wound to the plantar aspect of her left heel. She has been having this treated by a friend at the [facility], who has been using Iodosorb on the area. During her hospitalization, she has continued to have intermittent fevers with the last fever this morning of 101.4. Her leukocytosis has resolved. From labs from , she was noted to have a CRP of 402. She continues to report intermittent fevers and chills. She reports feeling as though her stomach is off a little bit with some nausea. Denies vomiting, diarrhea, constipation, urinary symptoms, recent travel. She also endorses some dizziness. While at the hospital, she has been continued on vancomycin and Zosyn. PAST MEDICAL HISTORY: 1. Posttraumatic stress disorder. 2. Bipolar disorder. 3. Obsessive compulsive disorder. 4. Borderline personality disorder. PAST SURGICAL HISTORY: Status post ventral hernia repair. MEDICATIONS: Home medications: 1. Escitalopram 10 mg by mouth daily. 2. Sertraline 10 mg by mouth daily. 3. Oxcarbazepine 150 mg t.i.d. 4. Naproxen 250 mg by mouth twice daily. 5. Klonopin 0.5 mg by mouth daily. 6. Trazodone 50 mg by mouth twice daily. Hospital medications: 1. Acetaminophen 650 mg by mouth every 6 hours as needed for pain. 2. Clonazepam 2 mg by mouth daily at bedtime. 3. Lexapro 10 mg by mouth daily at bedtime. 4. Ibuprofen 400 mg by mouth every 6 hours as needed for mild pain or fever. 5. Iron sucrose 200 mg IV daily. 6. Lactobacillus 1 tablet by mouth twice daily. 7. Zofran 4 mg IV every 6 hours as needed for nausea. 8. Oxcarbazepine 150 mg by mouth daily. 9. Protonix 40 mg by mouth daily. 10. Zosyn 3.375 g IV every 8 hours. 11. Tramadol 50 mg by mouth every 8 hours as needed for severe pain. 12. Trazodone 50 mg by mouth at bedtime. 13. Vancomycin 1000 mg IV every 6 hours. ALLERGIES: CODEINE, LATEX, MELOXICAM, MORPHINE. FAMILY HISTORY: Denies family history of recurrent or resistant infections. No family history of coronary artery disease. Mother with a history of diabetes , history of a pacemaker, and throat and lung cancer. She was a smoker. SOCIAL HISTORY: Reports drinking alcohol 1 to 2 times weekly. Denies tobacco or recreational drug use. REVIEW OF SYSTEMS: I performed a 10-point review of systems. All the pertinent positives and negatives are mentioned in the history of present illness. The remaining review of systems are negative. PHYSICAL EXAM: Vital Signs: Temperature 101.4, heart rate 98, respiratory rate 16, O2 sat 96% on room air, blood pressure 134/92. General Appearance: The patient is alert, appears to be in no acute distress, sitting up in bed. EENT: Extraocular movements are intact. No subconjunctival hemorrhage. Moist mucous membranes. Neck: Supple. No lymphadenopathy. Neurological: Alert and oriented x4. Cranial nerves II through XII are grossly intact. She moves all extremities. Cardiovascular: Regular rate and rhythm. S1, S2 present. No murmurs, rubs, or gallops heard. Respiratory: Lungs are clear to auscultation bilaterally. There is no accessory muscle use. Abdomen: Bowel sounds present. Abdomen is obese, soft, nontender. Extremities: There is 2+ bilateral lower extremity edema with the left greater than the right. DP and PT pulses are 2+ and symmetric. Musculoskeletal: No clubbing or cyanosis noted. She exhibits good strength in all extremities. Psychological: Calm and cooperative. Skin: She has dark erythema to the left leg from the ankle to the knee. Additionally, she has some light blanchable erythema to the medial aspect of her left thigh with some induration in that area. She also has multiple large bullae to the left leg. The left leg is warm to touch. On her left heel, on the plantar aspect, there is a callused area. This measures approximately 0.3 x 0.7 x 0.1 cm. It has dry dark eschar. No drainage. No surrounding erythema. There is serous drainage from the left lower extremity. DIAGNOSTIC STUDIES/LAB DATA: Labs from 09/22/19: Sodium 140, potassium 2.9, chloride 111, CO2 of 22, BUN 5, creatinine 0.47, glucose 115. White blood cell count 8.0, hemoglobin 9.3, hematocrit 27, platelet count 140. Blood cultures with no growth on day 2. Hemoglobin A1c 5.9. Please see impression and recommendations outlined above, recommendations have been discussed with Dr. Oneyda Barton. The case has been reviewed with my attending Dr. Chip Crowley, who agrees with the plan of care. Reviewed by JULIÁN SHARMA-Jim 09/26/19 1228 [id number]/[facility] #: [id number]
--- NOTE | 2019-09-23 15:17 | ECHO ---
*[facility]* [place] [address] Fax #: [phone] Transthoracic Echocardiogram Patient: Hawa Woods : 1975 Study Date: 09/23/2019 Age: 44 Gender: F HR: 82 bpm Height: 64 in /162.6 cm BSA: 2.28 m^2 Weight: 286.4 lb /130.2 kg BMI: 49.3 kg/m^2 *Dna Analyst: * Melani Swann [facility] *Referring Physician: * Oneyda Barton *Reading Physician: * Marko Maurer MD Indications: SOB. History: Risk factors: Obese. Conclusions Summary: - Left ventricle: The cavity size is normal. Wall thickness is mildly increased. Systolic function is normal. The estimated ejection fraction is 55-60%. Wall motion is normal; there are no regional wall motion abnormalities. - Right ventricle: The cavity size is normal. Systolic function is normal. - Left atrium: The atrium is mildly dilated. - Aortic root: The aortic root is mildly dilated. - Ascending aorta: The ascending aorta is mildly dilated. - Pulmonary arteries: Systolic pressure is within the normal range. - No significant valvular abnormalities noted. Recommendations: None prior for comparison at time of interpretation. Study data: Transthoracic echocardiogram. Procedure: Transthoracic echocardiography was performed. Image quality was suboptimal. The study was technically limited due to body habitus. Intravenous Definity , 4.5 mlswas administered. Complete 2D, spectral Doppler, and color flow Doppler. Location: Bedside. Patient status: Inpatient. Patient room number: 411-02. Rhythm: Normal sinus rhythm. Findings Left ventricle: The cavity size is normal. Wall thickness is mildly increased. Systolic function is normal. The estimated ejection fraction is 55-60%. Wall motion is normal; there are no regional wall motion abnormalities. Left ventricular diastolic function parameters are normal. Right ventricle: The cavity size is normal. Systolic function is normal. Left atrium: The atrium is mildly dilated. Right atrium: The atrium is mildly dilated. Mitral valve: The leaflets are mildly thickened. There is no evidence of stenosis. There is trace to mild regurgitation. Aortic valve: The valve is trileaflet. The leaflets are normal thickness. There is no evidence of stenosis. There is trace regurgitation. Tricuspid valve: The leaflets are normal thickness. There is no evidence of stenosis. There is mild regurgitation. Pulmonic valve: The leaflets are normal thickness. There is no evidence of stenosis. There is trace to mild regurgitation. Aorta: Aortic root: The aortic root is mildly dilated. Ascending aorta: The ascending aorta is mildly dilated. Aortic arch: The aortic arch is appears normal. Pericardium: A prominent pericardial fat pad is present. There is no significant pericardial effusion. Pulmonary arteries: The main pulmonary artery is normal-sized. Systolic pressure is within the normal range. Systemic veins: Inferior vena cava: The vessel is dilated. There is (< 50%) respiratory change in the IVC dimension. Measurements Left ventricle Value Ref Aortic valve Value Ref HARI, LAX 4.7 cm 3.8 - 5.2 Vesta diam, ED 2.1 cm ----- ESD, LAX 3.0 cm 2.2 - 3.5 Peak v, S 1.41 m/sec ----- FS, LAX 36 % 27 - 45 VTI, S 27.2 cm ----- PW, ED, LAX (H) 1.3 cm 0.6 - 0.9 Mean grad, S 4.0 mm Hg ----- FS 36 % 27 - 45 Peak grad, S 8.0 mm Hg ----- PW, ED (H) 1.3 cm 0.6 - 0.9 LVOT/AV, VTI ratio 0.88 ----- E', lat vesta, TDI 12.0 cm/sec >=10.0 E/e', lat vesta, 10 Mitral valve Value Ref TDI Peak E 1.14 m/sec ----- E', med vesta, TDI 14.0 cm/sec >=7.0 Peak A 0.55 m/sec --- -- E/e', med vesta, 8 Decel time 169 ms ----- TDI Peak grad, D 5.2 mm Hg ----- E', avg, TDI 13.0 cm/sec Peak E/A ratio 2.1 ----- E/e', avg, TDI 9 <=14 Pulmonic valve Value Ref LVOT Value Ref Peak v, S 1 m/sec ----- Peak andrea, S 1.22 m/sec Peak grad, S 4.0 mm Hg ----- VTI, S 24.0 cm Peak grad, S 6 mm Hg Tricuspid valve Value Ref Mean grad, S 4 mm Hg TR peak v 2.51 m/sec <=2.8 Peak RV-RA grad, S 25 mm Hg ----- Ventricular septum Value Ref IVS, ED (H) 1.2 cm 0.6 - 0.9 Aortic root Value Ref Root diam 3.7 cm <4.3 Right ventricle Value Ref HARI, LAX 3.1 cm Ascending aorta Value Ref HARI minor ax, A4C (H) 3.7 cm 1.9 - 3.5 AAo AP diam, S 3.6 cm ----- mid Pressure, S 40 mm Hg Aortic arch Value Ref Arch diam 2.6 cm ----- Left atrium Value Ref AP dim, ES 3.70 cm 2.70 - Decending aorta Value Ref 3.80 Donte peak andrea 0.92 m/sec ----- ML dim, A4C 4.4 cm SI dim, A4C 5.8 cm Pulmonary artery Value Ref Vol/bsa, ES, 1-p 25 ml/m^2 11 - 40 Pressure, S 36.0 mm Hg ----- A4C Vol/bsa, ES, A/L 30 ml/m^2 16 - 34 Inferior vena cava Value Ref Diam 2.3 cm ----- Right atrium Value Ref SI dim, ES (H) 5.6 cm 3.4 - 5.3 ML dim, ES, A4C 3.4 cm 2.6 - 4.4 Estimated RAP 15 mm Hg Legend: (L) and (H) micki values outside specified reference range. Prepared and electronically signed by Marko Maurer MD 09/23/2019 15:17
[2019-09-23] MEDS: cefTRIAXone(*) 2 GM in NS 0.9% 50 ML* 50 ML IVPB SCH (16:36)
[2019-09-23] MEDS: clonazePAM TAB(*) 1 MG PO SCH (20:16)
[2019-09-23] MEDS: Escitalopram * 10 MG TAB PO SCH (20:17)
[2019-09-23] MEDS: traZODone TAB* 50 MG TAB PO SCH (20:17)
[2019-09-24] MEDS: traMADol TAB* 50 MG PO PRN ×2 (04:04→15:49)
[2019-09-24 06:16] LABS: Hematocrit 31 % (35-47); Hemoglobin 10.3 g/dL (12.0-16.0); Mean Corpuscular HGB Conc 34 g/dL (31-36); Mean Corpuscular Hemoglobin 30 pg (27-31); Mean Corpuscular Volume 90 fL (80-97); Mean Platelet Volume 7.6 fL (7.4-10.4); Platelet Count 192 10^3/uL (150-450); Red Cell Distribution Width 14 % (10-15); White Blood Count 7.1 10^3/uL (3.5-10.8)
[2019-09-24 06:33] LABS: BUN/Creatinine Ratio 9.8 (8-20); EGFR African American 157.8 (>60); EGFR Non-African American 130.4 (>60); Potassium 3.5 mmol/L (3.5-5.0)
[2019-09-24 07:02] LABS: ABS Eosinophils 0.2 10^3/ul (0-0.6); ABS Lymphocytes 1.3 10^3/ul (1.0-4.8); ABS Monocytes 0.5 10^3/ul (0-0.8); Eosinophil % 3.1 %; Lymphocyte % 18.3 %; Nucleated Red Blood Cells % 0.1
[2019-09-24] MEDS: Lactobacillus Acidophilus* 1 TAB PO SCH ×2 (09:37→20:52)
[2019-09-24] MEDS: OXcarbazepine TAB(*) 300 MG PO SCH (09:37)
[2019-09-24] MEDS: Iron Sucrose* 200 MG in NS 0.9% 100 ML* 100 ML IVPB SCH (09:37)
[2019-09-24] MEDS: Pantoprazole TAB * 40 MG TAB PO SCH (09:38)
[2019-09-24] MEDS: Ibuprofen TAB* 400 MG PO PRN (09:38)
--- NOTE | 2019-09-24 09:55 | PN ---
Subjective Date of Service: 09/24/19 Interval History: No fevers overnight. last fever yesterday at 8AM. No trouble breathing. She fears that her left inner thigh will get blisters now, although there is no sign of any blisters there, she is worried about it. Pain at the left leg has improved. Family History: Unchanged from Admission Social History: Unchanged from Admission Past Medical History: Unchanged from Admission Objective Active Medications: Acetaminophen (Tylenol Tab*) 650 mg PO Q6H PRN PRN Reason: PAIN - MODERATE Last Admin: 09/22/19 08:14 Dose: 650 mg Clonazepam (Klonopin Tab(*)) 2 mg PO BEDTIME [facility] Last Admin: 09/23/19 20:16 Dose: 2 mg Escitalopram Oxalate (Lexapro *) 10 mg PO BEDTIME [facility] Last Admin: 09/23/19 20:17 Dose: 10 mg Iron Sucrose 200 mg/ Sodium (Chloride) 110 mls @ 110 mls/hr IVPB DAILY [facility] Stop: 09/25/19 09:59 Last Admin: 09/24/19 09:37 Dose: 110 mls/hr Ceftriaxone Sodium 2 gm/ (Sodium Chloride) 50 mls @ 200 mls/hr IVPB Q24H [facility] Last Admin: 09/23/19 16:36 Dose: 200 mls/hr Ibuprofen (Motrin Tab*) 400 mg PO Q6H PRN PRN Reason: MILD PAIN or TEMP > 100.4 Last Admin: 09/24/19 09:38 Dose: 400 mg Lactobacillus Rhamnosus (Lactobacillus Acidophilus*) 1 tab PO BID [facility] Last Admin: 09/24/19 09:37 Dose: 1 tab Ondansetron HCl (Zofran Inj*) 4 mg IV Q6H PRN PRN Reason: NAUSEA Last Admin: 09/20/19 15:47 Dose: 4 mg Oxcarbazepine (Trileptal Tab(*)) 150 mg PO DAILY [facility] Last Admin: 09/24/19 09:37 Dose: 150 mg Pantoprazole Sodium (Protonix Tab*) 40 mg PO DAILY [facility] Last Admin: 09/24/19 09:38 Dose: 40 mg Tramadol HCl (Ultram*) 50 mg PO Q8H PRN PRN Reason: PAIN - SEVERE Last Admin: 09/24/19 04:04 Dose: 50 mg Trazodone HCl (Desyrel Tab*) 50 mg PO BEDTIME [facility] Last Admin: 09/23/19 20:17 Dose: 50 mg Vital Signs - 8 hr 09/24/19 09/24/19 09/24/19 04:00 04:03 04:04 Temperature 98.8 F Pulse Rate 97 Respiratory 20 20 18 Rate Blood Pressure 138/85 (mmHg) O2 Sat by Pulse 96 Oximetry Oxygen Devices in Use Now: None Appearance: Sitting on bed, not in distress. obese Eyes: PERRLA Respiratory: Symmetrical Chest Expansion and Respiratory Effort, Clear to Auscultation Cardiovascular: NL Sounds; No Murmurs; No JVD, RRR, No Edema Skin: - - LLE with mild to moderate erythema with blisters at the lower leg. Left inner thigh with minimal erythema. Neurological: Alert and Oriented x 3 Result Diagrams: 09/24/19 05:59 09/24/19 05:59 Microbiology and Other Data: Microbiology 09/21/19 06:44 Aerobic Blood Culture - Preliminary Blood Venous No Growth Day 1 Anaerobic Blood Culture - Preliminary No Growth Day 1 09/21/19 20:25 Stool Occult Blood ([facility]) - Final Stool Assess/Plan/Problems-Billing Assessment: - Patient Problems (1) Sepsis due to cellulitis Current Visit: Yes Status: Acute Code(s): L03.90 - CELLULITIS, UNSPECIFIED; A41.9 - SEPSIS, UNSPECIFIED ORGANISM SNOMED Code(s): 25312845 Comment: Left leg cellulitis- is improving Blood cultures were done at [facility]- called them today and they reported the cultures are negative thus far seen by ID, d/c'ed sandra/italia- received 4 days. now on rocpehin, today is day 2. blood cultures here are thus far negative. DVT was ruled out. (2) Anemia, iron deficiency Current Visit: Yes Status: Acute Code(s): D50.9 - IRON DEFICIENCY ANEMIA, UNSPECIFIED SNOMED Code(s): 51195422 Comment: Low hemoglobin. folate and B12 are WNL iron studies suggestive of iron deficiency IV iron while inpatient, and then will discharge with oral iron at this point no acute bleeding reports brown colored stool, stool occult is negative. drop in hb this admission- could be dilutional- will monitor. (3) Hyponatremia Current Visit: Yes Status: Acute Code(s): E87.1 - HYPO-OSMOLALITY AND HYPONATREMIA SNOMED Code(s): 46253882 Comment: mild hyponatremia will monitor received IV fluids, now findings suggestive of fluid overload, IV fluids stopped and status post 1mg IV of bumex 09/21 (4) Hypokalemia Current Visit: Yes Status: Acute Code(s): E87.6 - HYPOKALEMIA SNOMED Code( s): 73864310 Comment: repleted 09/21, 09/22 (5) Obesity Current Visit: Yes Status: Acute Code(s): E66.9 - OBESITY, UNSPECIFIED SNOMED Code(s): 913873584 Comment: BMI of 49 A1c is WNL. (6) Leg swelling Current Visit: Yes Status: Acute Code(s): M79.89 - OTHER SPECIFIED SOFT TISSUE DISORDERS SNOMED Code(s): 227587300 Comment: improved ECHO reviewed, no CHF (7) Sleep apnea Current Visit: Yes Status: Acute Code(s): G47.30 - SLEEP APNEA, UNSPECIFIED SNOMED Code(s): 38038206 Comment: on Night CPAP (8) DVT prophylaxis Current Visit: Yes Status: Acute Code(s): Z29.9 - ENCOUNTER FOR PROPHYLACTIC MEASURES, UNSPECIFIED SNOMED Code(s): 717455093 Comment: lovenox subQ started today. there was anemia- so was holding off.
[2019-09-24] MEDS: Enoxaparin(*) 40 MG/0.4 ML SYR SUBCUT SCH (12:27)
[2019-09-24] MEDS: cefTRIAXone(*) 2 GM in NS 0.9% 50 ML* 50 ML IVPB SCH (15:50)
[2019-09-24] MEDS: Escitalopram * 10 MG TAB PO SCH (20:52)
[2019-09-24] MEDS: traZODone TAB* 50 MG TAB PO SCH (20:52)
[2019-09-24] MEDS: clonazePAM TAB(*) 1 MG PO SCH (20:52)
[2019-09-25] MEDS: traMADol TAB* 50 MG PO PRN ×2 (02:35→16:03)
[2019-09-25 08:09] LABS: EGFR African American 138.8 (>60); EGFR Non-African American 114.7 (>60)
--- NOTE | 2019-09-25 08:53 | PN ---
Subjective Date of Service: 09/25/19 Interval History: No acute issues overnight Now afebrile X 24+ hours. No chills, continues to have pain at the left inner thigh. Family History: Unchanged from Admission Social History: Unchanged from Admission Past Medical History: Unchanged from Admission Objective Active Medications: Acetaminophen (Tylenol Tab*) 650 mg PO Q6H PRN PRN Reason: PAIN - MODERATE Last Admin: 09/22/19 08:14 Dose: 650 mg Clonazepam (Klonopin Tab(*)) 2 mg PO BEDTIME [facility] Last Admin: 09/24/19 20:52 Dose: 2 mg Enoxaparin Sodium (Lovenox(*)) 40 mg SUBCUT Q24H [facility] Last Admin: 09/24/19 12:27 Dose: 40 mg Escitalopram Oxalate (Lexapro *) 10 mg PO BEDTIME [facility] Last Admin: 09/24/19 20:52 Dose: 10 mg Iron Sucrose 200 mg/ Sodium (Chloride) 110 mls @ 110 mls/hr IVPB DAILY [facility] Stop: 09/25/19 09:59 Last Admin: 09/24/19 09:37 Dose: 110 mls/hr Ceftriaxone Sodium 2 gm/ (Sodium Chloride) 50 mls @ 200 mls/hr IVPB Q24H [facility] Last Admin: 09/24/19 15:50 Dose: 200 mls/hr Ibuprofen (Motrin Tab*) 400 mg PO Q6H PRN PRN Reason: MILD PAIN or TEMP > 100.4 Last Admin: 09/24/19 09:38 Dose: 400 mg Lactobacillus Rhamnosus (Lactobacillus Acidophilus*) 1 tab PO BID [facility] Last Admin: 09/24/19 20:52 Dose: 1 tab Ondansetron HCl (Zofran Inj*) 4 mg IV Q6H PRN PRN Reason: NAUSEA Last Admin: 09/20/19 15:47 Dose: 4 mg Oxcarbazepine (Trileptal Tab(*)) 150 mg PO DAILY [facility] Last Admin: 09/24/19 09:37 Dose: 150 mg Pantoprazole Sodium (Protonix Tab*) 40 mg PO DAILY [facility] Last Admin: 09/24/19 09:38 Dose: 40 mg Tramadol HCl (Ultram*) 50 mg PO Q8H PRN PRN Reason: PAIN - SEVERE Last Admin: 09/25/19 02:35 Dose: 50 mg Trazodone HCl (Desyrel Tab*) 50 mg PO BEDTIME [facility] Last Admin: 09/24/19 20:52 Dose: 50 mg Vital Signs - 8 hr 09/25/19 09/25/19 09/25/19 02:32 02:35 03:25 Temperature 98.8 F Pulse Rate 88 Respiratory 16 18 16 Rate Blood Pressure 106/63 (mmHg) O2 Sat by Pulse 96 Oximetry 09/25/19 05:40 Temperature Pulse Rate Respiratory 17 Rate Blood Pressure (mmHg) O2 Sat by Pulse Oximetry Oxygen Devices in Use Now: None Appearance: Obese female sitting on bed, not in distress Eyes: PERRLA Ears/Nose/Mouth/Throat: Mucous Membranes Moist Respiratory: Symmetrical Chest Expansion and Respiratory Effort, Clear to Auscultation Cardiovascular: NL Sounds; No Murmurs; No JVD, RRR Skin: - - Left inner thigh with mild erythema and mild tenderness, Left lower leg with mild to moderate erythema with blisters. Neurological: Alert and Oriented x 3 Result Diagrams: 09/24/19 05:59 09/25/19 07:48 Microbiology and Other Data: Microbiology 09/23/19 12:30 Gram Stain - Final Wound Wound Culture - Final Normal Blank 09/21/19 06:44 Aerobic Blood Culture - Preliminary Blood Venous No Growth Day 4 Anaerobic Blood Culture - Preliminary No Growth Day 4 09/21/19 20:25 Stool Occult Blood ([facility]) - Final Stool Assess/Plan/Problems-Billing Assessment: - Patient Problems (1) Sepsis due to cellulitis Current Visit: Yes Status: Acute Code(s): L03.90 - CELLULITIS, UNSPECIFIED; A41.9 - SEPSIS, UNSPECIFIED ORGANISM SNOMED Code(s): 60176476 Comment: Left leg cellulitis- is improving Blood cultures were done at [facility]- called them today and they reported the cultures are negative thus far seen by ID, d/c'ed sandra/italia- received 4 days. now on rocpehin, today is day 3. blood cultures here are thus far negative. DVT was ruled out. (2) Anemia, iron deficiency Current Visit: Yes Status: Acute Code(s): D50.9 - IRON DEFICIENCY ANEMIA, UNSPECIFIED SNOMED Code(s): 84743850 Comment: Low hemoglobin. folate and B12 are WNL iron studies suggestive of iron deficiency today is day 5 of 5 of IV iron. will start oral iron starting tomorrow. at this point no acute bleeding reports brown colored stool, stool occult is negative. drop in hb this admission- could be dilutional- will monitor. (3) Hyponatremia Current Visit: Yes Status: Acute Code(s): E87.1 - HYPO-OSMOLALITY AND HYPONATREMIA SNOMED Code(s): 60552718 Comment: mild hyponatremia resolved. (4) Hypokalemia Current Visit: Yes Status: Acute Code(s): E87.6 - HYPOKALEMIA SNOMED Code( s): 26783964 Comment: repleted 09/21, 09/22 (5) Obesity Current Visit: Yes Status: Acute Code(s): E66.9 - OBESITY, UNSPECIFIED SNOMED Code(s): 074189315 Comment: BMI of 49 A1c is WNL. (6) Leg swelling Current Visit: Yes Status: Acute Code(s): M79.89 - OTHER SPECIFIED SOFT TISSUE DISORDERS SNOMED Code(s): 459549565 Comment: improved ECHO reviewed, no CHF (7) Sleep apnea Current Visit: Yes Status: Acute Code(s): G47.30 - SLEEP APNEA, UNSPECIFIED SNOMED Code(s): 28642679 Comment: on Night CPAP (8) DVT prophylaxis Current Visit: Yes Status: Acute Code(s): Z29.9 - ENCOUNTER FOR PROPHYLACTIC MEASURES, UNSPECIFIED SNOMED Code(s): 904375987 Comment: lovenox subQ
[2019-09-25] MEDS: OXcarbazepine TAB(*) 300 MG PO SCH (09:07)
[2019-09-25] MEDS: Lactobacillus Acidophilus* 1 TAB PO SCH ×2 (09:07→21:24)
[2019-09-25] MEDS: Pantoprazole TAB * 40 MG TAB PO SCH (09:07)
[2019-09-25] MEDS: Enoxaparin(*) 40 MG/0.4 ML SYR SUBCUT SCH (09:08)
[2019-09-25] MEDS ORDERED: NS 0.9% IVPB SCH ×2 (10:03→16:00)
[2019-09-25] MEDS ORDERED: CEFTRIAXONE IVPB SCH ×2 (10:03→16:00)
[2019-09-25] MEDS: Iron Sucrose* 200 MG in NS 0.9% 100 ML* 100 ML IVPB SCH (10:19)
[2019-09-25] MEDS ORDERED: cefTRIAXone(*) 2 GM in NS 0.9% 100 ML* 100 ML IVPB SCH (16:00)
[2019-09-25] MEDS: Escitalopram * 10 MG TAB PO SCH (21:24)
[2019-09-25] MEDS: traZODone TAB* 50 MG TAB PO SCH (21:24)
[2019-09-25] MEDS: clonazePAM TAB(*) 1 MG PO SCH (21:24)
[2019-09-26] MEDS: traMADol TAB* 50 MG PO PRN ×2 (00:02→08:14)
[2019-09-26] MEDS: OXcarbazepine TAB(*) 300 MG PO SCH (07:59)
[2019-09-26] MEDS: Lactobacillus Acidophilus* 1 TAB PO SCH (08:00)
[2019-09-26] MEDS: Pantoprazole TAB * 40 MG TAB PO SCH (08:00)
[2019-09-26] MEDS: Enoxaparin(*) 40 MG/0.4 ML SYR SUBCUT SCH (08:03)
[2019-09-26] MEDS ORDERED: Ferrous Sulfate TAB* 325 MG PO SCH (09:00)
[2019-09-26 12:32] VITALS: BP 138/94
--- NOTE | 2019-09-26 14:13 | DS ---
CC: Dr. Jay Gilliland, * DISCHARGE SUMMARY: DATE OF ADMISSION: 09/20/19 DATE OF DISCHARGE: 09/26/19 REASON FOR THE ADMISSION: Left leg cellulitis. HOSPITAL COURSE: This is a 44-year-old female with past medical history of mental illness, who was admitted to [facility] because of left leg cellulitis. The patient was subsequently transferred from [facility] to [facility] for further treatment and care. In the hospital, the patient was started on IV vancomycin and Zosyn. An ultrasound of the left lower extremity was done to rule out a DVT. Blood cultures were sent. Blood cultures have remained negative throughout the hospital course. The patient also had a consultation with Infectious Disease, the patient was eventually changed from IV vancomycin and Zosyn to IV Rocephin. The patient has been afebrile for the past 24 hours. Last time the patient had a fever was on at 8 o'clock in the morning, it was 101.4 Fahrenheit. The patient's hospital course was complicated by the patient developing shortness of breath and lower extremity edema, for which the patient received IV Bumex. For this, we also obtained a transthoracic echocardiogram, which ruled out congestive heart failure. The patient's ejection fraction was 55% to 60%. The patient was noted to have anemia with iron studies suggestive of iron deficiency anemia. The patient received IV iron x5 days and subsequently we will be discharging her on oral iron supplements. I discussed with the patient regarding the need for gastroenterology evaluation. The patient reports that she will discuss it with her primary care provider who will provide with the appropriate referrals as she does not want me to refer the patient because I am not within the [facility] system. The patient would like to have a GI evaluation as dictated by her primary care provider. Other etiology for her iron deficiency anemia does include uterine losses as the patient reports that she does have a history of heavy menses. The patient also has a left heel wound. According to the patient, she sustained this wound after stepping on her dog. The wound did not look acutely infected. The patient will require additional wound care for the wound that is present. We discussed this with the patient. The patient reports that she is with the [facility] system and she would like them to figure out regarding the wound care. This was also discussed with our pillowcase cutter and they will work on giving all the information that the [facility] requires to set up the wound care. DISCHARGE DIAGNOSES: Include: 1. Sepsis secondary to left leg cellulitis. 2. Anemia of iron deficiency. 3. Hyponatremia, resolved. 4. Hypokalemia, resolved. 5. Obesity with a BMI of 49. 6. History of sleep apnea, on night CPAP. 7. Mental illness. PHYSICAL EXAMINATION: Blood pressure of 138/94, heart rate of 84, temperature of 97.3 Fahrenheit, O2 sat of 97% on room air. General: This is an obese female, lying in bed, in no acute distress. There is no JVD. Pupils are equal , round, reactive to light. Atraumatic, normocephalic. Lungs: There is no tachypnea. No use of accessory muscles. Lungs are clear without any wheezing, rales, or rhonchi. Abdomen: Normoactive bowel sounds. Surgical scar noted at the midline vertically. There is no tenderness. Abdomen is soft, nondistended. Extremities: There is no lower extremity edema on the right leg. Left lower leg, there is an area demarcated with the marker, which has mild erythema with blisters noted as well as left groin and left inner thigh with mild erythema. There is no swelling at the inner groin; however, there is swelling at the left lower leg. Left heel with an ulcer with no surrounding erythema, tenderness or drainage, has dark discoloration. DISCHARGE PLANNING: DISCHARGE CONDITION: Fair. DISCHARGE DISPOSITION: Home. DISCHARGE MEDICATIONS: Include: 1. Keflex 500 mg 4 times a day for the next 14 days. 2. Ferrous sulfate 325 mg daily. 3. Lactobacillus 1 tab twice a day. 4. Pantoprazole 40 mg daily. 5. Cetirizine 10 mg daily. 6. Escitalopram 10 mg daily. 7. Fish oil 1000 mg softgel daily. 8. Klonopin 0.5 mg daily as needed for anxiety. 9. Multivitamin with minerals 1 dose daily. 10. Naproxen 250 mg as needed. 11. Oxcarbazepine 150 mg 3 times a day. 12. Trazodone 50 mg b.i.d. DISCHARGE FOLLOWUP: The patient is to follow up with her primary care provider Dr. Jay Gilliland within a week. The patient is to ask the [facility] for a GI referral. The patient to return to the emergency room for fevers, chills, worsening rash, or if any new symptoms occur. The patient is to follow up with the wound clinic regarding her left wound, referral will be made by the [facility]. [id number]/[facility] #: [id number] MTDD
== END 2019-09-26 13:00 | disposition home or self-care (01) | DRG 872 ==
LOC: MED 14:09
PROVIDERS: ADMIT Internal Medicine; ATTEND Internal Medicine
DX: A41.9 Sepsis, unspecified organism (principal); L03.116 Cellulitis of left lower limb; E87.1 Hypo-osmolality and hyponatremia; L97.429 Non-pressure chronic ulcer of left heel and midfoot with unspecified severity; Z68.42 Body mass index [BMI] 45.0-49.9, adult; F43.10 Post-traumatic stress disorder, unspecified; F42.9 Obsessive-compulsive disorder, unspecified; F31.9 Bipolar disorder, unspecified; F60.3 Borderline personality disorder; D50.0 Iron deficiency anemia secondary to blood loss (chronic); E87.6 Hypokalemia; G47.30 Sleep apnea, unspecified; G62.9 Polyneuropathy, unspecified; E66.9 Obesity, unspecified; R06.02 Shortness of breath; R60.0 Localized edema; Z99.89 Dependence on other enabling machines and devices; Z79.899 Other long term (current) drug therapy
CPT/HCPCS: 36415; 36600; 80048; 80053; 80202; 82272; 82550; 82565; 82607; 82728; 82746; 82803; 83036; 83540; 83550; 83605; 84520; 85025; 85027; 86140; 87040; 87070; 87205; 93306; 94660; A9270-GY; C8929; J0696; J1650; J1756; J2270; J2405; J2543; J3370